=== PATIENT | male | born 1990 | race Caucasian/White ===

== ENCOUNTER 2021-08-12 23:58 | Emergency (ER) | payer OTHER ==
[2021-08-13 01:25] LABS: BASOPHIL 0.8 % (0-2); EOSINOPHIL 1.5 % (0-5); HCT 47.8 % (42.0-52.0); LYMPHOCYTE 27.5 % (15-48); MCHC 33.5 g/dL (32.0-36.0); MCV 83.7 fL (78.0-100.0); MONOCYTE 8.1 % (0-12); MPV 8.8 fL (6.0-9.5); NEUTROPHIL 61.7 % (41-80); NRBC 0; PLT 295 K/uL (150-400); RBC 5.71 M/uL (4.70-6.00); RDW 12.6 % (11.5-14.0)
[2021-08-13 02:00] LABS: ALBUMIN 3.7 g/dL (3.4-5.0); BILIRUBIN - TOTAL 0.8 mg/dL (0.2-1.0); BUN/CREAT RATIO (CALC) 19.3 RATIO; CREATININE 1.19 mg/dL (0.67-1.17); POTASSIUM 4.1 mmol/L (3.5-5.1); TOTAL PROTEIN 7.7 g/dL (6.4-8.2)
[2021-08-13 02:02] LABS: CORONAVIRUS 2019 SARS-COV-2 NEGATIVE (NEGATIVE); INFLUENZA A NAA NEGATIVE (NEGATIVE)
[2021-08-13] MEDS ORDERED: HYDROCODONE-CH473 ML PO (03:00)
[2021-08-13] MEDS ORDERED: ZPAK PO (03:00)
[2021-08-13] MEDS ORDERED: VENTOLIN HFA IN18 GM INH (03:00)
[2021-08-13] MEDS ORDERED: MEDROL 4MG DOSEP4 MG PO (03:00)
[2021-08-13] MEDS ORDERED: TESSALON PERLE100 MG PO (03:00)
== END 2021-08-13 03:19 | disposition home or self-care (01) ==
LOC: FER 23:58
PROVIDERS: Emergency Medicine Emergency Medical Services
DX: J18.9 Pneumonia, unspecified organism (principal); F17.210 Nicotine dependence, cigarettes, uncomplicated; Z20.822 Contact with and (suspected) exposure to COVID-19
CPT/HCPCS: 36415; 36600; 71045; 80053; 82728; 82803; 83605; 83880; 84145; 84484; 85025; 85379; 93005; 94640; 94664; J1885; J2930; U0002

== ENCOUNTER 2022-02-10 17:44 | Emergency (ER) | payer MEDICAID ==
[~2022-02-10 17:44] MED LIST: HYDROCODONE-CH473 ML PO; MEDROL 4MG DOSEP4 MG PO; TESSALON PERLE100 MG PO; VENTOLIN HFA IN18 GM INH; ZPAK PO
[2022-02-10 22:11] LABS: BASOPHIL 0.6 % (0-2); EOSINOPHIL 1.1 % (0-5); HCT 48.7 % (42.0-52.0); LYMPHOCYTE 16.5 % (15-48); MCH 27.1 pg (25.0-31.0); MCHC 32.9 g/dL (32.0-36.0); MCV 82.4 fL (78.0-100.0); NEUTROPHIL 71.4 % (41-80); NRBC 0; PLT 304 K/uL (150-400); RBC 5.91 M/uL (4.70-6.00); WBC 11.6 K/uL (4.0-10.5)
[2022-02-10 22:25] LABS: CORONAVIRUS 2019 SARS-COV-2 NEGATIVE (NEGATIVE); INFLUENZA A NAA NEGATIVE (NEGATIVE)
[2022-02-10 22:33] LABS: ALBUMIN 3.3 g/dL (3.4-5.0); BILIRUBIN - TOTAL 0.7 mg/dL (0.2-1.0); BUN/CREAT RATIO (CALC) 15.8 RATIO; CREATININE 1.01 mg/dL (0.67-1.17); GLOBULIN (CALCULATION) 4.4 g/dL; POTASSIUM 3.8 mmol/L (3.5-5.1); TOTAL PROTEIN 7.7 g/dL (6.4-8.2)
[2022-02-11] MEDS ORDERED: PREDNISONE 20MG20 MG PO (00:09)
[2022-02-11] MEDS ORDERED: VIBRAMYCIN100 MG PO (00:09)
[2022-02-11] MEDS ORDERED: ONDANSETRON ODT4 MG PO (00:09)
== END 2022-02-11 00:31 | disposition home or self-care (01) ==
LOC: FER 17:44
PROVIDERS: Internal Medicine
DX: J02.9 Acute pharyngitis, unspecified (principal); B34.9 Viral infection, unspecified; F17.210 Nicotine dependence, cigarettes, uncomplicated; Z20.822 Contact with and (suspected) exposure to COVID-19
CPT/HCPCS: 36415; 80053; 83605; 84145; 85025; 87880; J1100; J7120; U0002